=== PATIENT | female | born 1955 | race Caucasian/White ===

== ENCOUNTER → 2021-01-26 | Outpatient (CLI) | payer BC, MEDICARE | LOC: LAB 17:06 | DX: T84.84XA Pain due to internal orthopedic prosthetic devices, implants and grafts, initial encounter (principal) | CPT/HCPCS: 36415; 85652; 86140 ==

== ENCOUNTER → 2021-02-03 | Outpatient (CLI) | payer BC, MEDICARE | LOC: KOH-I 10:34 | DX: Z01.818 Encounter for other preprocedural examination (principal) | CPT/HCPCS: 71046 ==